=== PATIENT | male | born 1930 | race Caucasian/White ===

== ENCOUNTER → 2017-06-04 | Day surgery (SDC) | payer MEDICARE, OTHER ==
[~2017-06-04] VITALS: Ht 167.6 cm; Wt 86.7 kg
[~2017-06-04] MED LIST: ASPIRIN EC81 MG; ASPIRIN EC81 MG PO; FISH OIL 1,0001 EACH PO; LEVOTHROID (S100 MCG PO; LIPITOR40 MG PO; LOTRISONE15 GM TOP; PRILOSEC20 MG PO; PROSCAR5 MG PO; SURFAK240 MG PO; VITAMIN D1000 UNIT PO
--- NOTE | ~2017-06-04 | OR ---
PATIENT'S NAME: ORQUIDEA TORRES [facility] AGE: 87 Y [address] ROOM: [place] [address] LOCATION: [facility] [place] ADMIT DATE: 06/04/2017 OR/Procedure Report DISCHARGE DATE: FAMILY PHYSICIAN: Ayleen Joy MD ATTENDING PHYSICIAN: Kan Mcintyre SURGEON: Kan Mcintyre MD [employer]: DATE OF PROCEDURE: 06/04/2017 PREOPERATIVE DIAGNOSES: 1. Gross hematuria. 2. Benign prostatic hypertrophy and bladder outlet obstruction with previous transurethral resection of prostate and bladder stones. 3. Recent culture-documented urinary tract infection. 4. Left nephrolithiasis. POSTOPERATIVE DIAGNOSES: 1. Gross hematuria. 2. Benign prostatic hypertrophy and bladder outlet obstruction with previous transurethral resection of prostate and bladder stones. 3. Recent culture-documented urinary tract infection. 4. Left nephrolithiasis. PROCEDURES PERFORMED: 1. Cystoscopy. 2. Left extracorporeal shock wave lithotripsy. ANESTHESIA: Sedation. INDICATION: This is an 87-year-old gentleman with the above-noted diagnoses. He underwent a 28 g benign resection a few years ago. He has done relatively well from a voiding standpoint. Because of his underlying hypertrophy, we have maintained him on a 2-rpxot-wjazqdfrm inhibitor in the form of finasteride. He recently had a urinary tract infection. He had gross hematuria with it. That is the presumed source of his bleeding. We will evaluate his lower urinary tract at the time of his elective lithotripsy. Interestingly, he has been having some right flank pain. He did not have any obvious obstruction or stones on the right side. Fortunately, those symptoms have resolved with chiropractic treatment. I would note that the only other thing we find on today's exam is significant dermatitis. It gives the impression of tinea cruris. We will treat that topically. DESCRIPTION OF PROCEDURE: Having obtained his informed consent, the patient was taken first to the cystoscopy suite. He was prepped and draped sterilely and in lithotomy position. IV sedation was administered. He had the skin PATIENT'S NAME: ORQUIDEA TORRES [facility] AGE: 87 Y [address] ROOM: [place], [place] [address] LOCATION: [facility] [place] ADMIT DATE: 06/04/2017 OR/Procedure Report DISCHARGE DATE: FAMILY PHYSICIAN: Ayleen Joy MD ATTENDING PHYSICIAN: Kan Mcintyre reaction and skin changes noted above. He had some meatal stenosis. I had to use Ryan sounds to get the rigid scope passed. Once into the urethra, it was open. He had residual BPH with some middle lobe tissue. His previous resection was obvious. He was not obstructed significantly. Moving into the bladder, we found no tumors, stones, or foreign bodies. Orifices were pushed laterally by his middle lobe, but both were effluxing clear urine. Bladder examination was confirmed with a 70-degree lens. The bladder was drained, and the patient was moved to the lithotripsy suite. The left-sided stone was brought into the second focal point ellipsoid, and fragmentation was begun. We started at 14 kV and worked up to a maximum of 22 kV. After 2200 impulses, the stone appeared to be nicely fragmented. The patient tolerated the procedures well. Blood loss was negligible. No specimens were sent. The patient returned to the outpatient recovery area awake and in stable condition. KAN MCINTYRE MD [facility]/modl /[id number] CC: Ayleen Joy MD d: 06/04/17 1205 t: 06/11/17 1252, OPERATIVE SUMMARY
[2017-06-04 08:55] LABS: BASOPHIL % 0.5 %; EOSINOPHIL # 0.1 K/uL (0.0-0.5); EOSINOPHIL % 1.3 %; HEMATOCRIT 49.6 % (33.0-50.0); HEMOGLOBIN 17.5 g/dL (11.0-16.0); IMMATURE GRANULOCYTE % 0.5 %; LYMPHOCYTE # 2.3 K/uL (0.8-4.0); LYMPHOCYTE % 30.6 %; MCH 32.3 pg (27.0-34.0); MCHC 35.3 gm/dL (32.0-36.5); MCV 91.5 fl (83.0-98.0); MONOCYTE # 0.9 K/uL (0.0-1.0); MONOCYTE % 11.2 %; MPV 9.8 fl (9.4-12.4); NEUTROPHIL # (ANC) 4.2 K/uL (1.4-9.0); NEUTROPHIL % 55.9 %; NRBC % 0 /100WBC (0-0.00); PLATELET COUNT 132 K/uL (150-450); RBC 5.42 M/uL (3.50-5.50); RDW-CV 13.3 % (11.9-14.6); WBC 7.6 K/uL (4.0-11.0)
[2017-06-04 09:23] LABS: ALBUMIN 3.5 gm/dL (3.5-5.0); CALCIUM 8.5 mg/dL (8.5-10.5); CREATININE 1.4 mg/dL (0.6-1.3); TOTAL BILIRUBIN 1.9 mg/dL (0.0-1.5)
== END | disposition disaster alternative care site (69) ==
LOC: GPOC 05-30 14:00 → GSDC 07:00
PROVIDERS: Urology
PROC: 0TF4XZZ Fragmentation in Left Kidney Pelvis, External Approach (ICD-10-PCS; principal; 2017-06-04)
PROC: 0TJB8ZZ Inspection of Bladder, Via Natural or Artificial Opening Endoscopic (ICD-10-PCS; 2017-06-04)
DX: N20.0 Calculus of kidney (principal); N40.1 Benign prostatic hyperplasia with lower urinary tract symptoms; N13.8 Other obstructive and reflux uropathy; N35.9 Urethral stricture, unspecified; E78.00 Pure hypercholesterolemia, unspecified; Z98.41 Cataract extraction status, right eye; Z98.42 Cataract extraction status, left eye; Z79.82 Long term (current) use of aspirin; Z79.899 Other long term (current) drug therapy; Z98.890 Other specified postprocedural states
CPT/HCPCS: C1769; J1956; J2001; J7030